=== PATIENT | female | born 1970 | race Caucasian/White ===

== ENCOUNTER → 2018-10-06 | Outpatient (REF) | payer MEDICARE ==
[2018-10-06 17:34] LABS: ALBUMIN 3.7 GM/DL (3.2-5.2); ALT/SGPT 47 U/L (12-78); BILIRUBIN,TOTAL 0.3 MG/DL (0.2-1.0); BLOOD UREA NITROGEN 11 MG/DL (7-18); CALCIUM LEVEL 9.2 MG/DL (8.5-10.1); CARBON DIOXIDE LEVEL 32 MEQ/L (21-32); CHLORIDE LEVEL 104 MEQ/L (98-107); CREATININE FOR GFR 0.89 MG/DL (0.55-1.30); GLOMERULAR FILTRATION RATE > 60.0 (>51); GLUCOSE, FASTING 85 MG/DL (70-100); POTASSIUM SERUM 4.2 MEQ/L (3.5-5.1); SODIUM LEVEL 141 MEQ/L (136-145); TOTAL PROTEIN 6.6 GM/DL (6.4-8.2)
== END ==
LOC: M SFHCLERA 11:48
PROVIDERS: ATTEND Physician Assistant
DX: R60.0 Localized edema (principal)

== ENCOUNTER → 2018-10-06 | Outpatient (CLI) | payer MEDICARE ==
--- NOTE | 2018-10-06 12:37 | REP ---
Chest x-ray: Two views. History: Palpitations. Edema. Findings: Ventral discectomy and fusion plate is seen in the lower cervical spine. The lungs are slightly hyperinflated but free of infiltrate. Pleural angles are sharp. Heart size is normal. Pulmonary vasculature is not increased. There are minimal degenerative changes in the mid thoracic spine. Impression: Mild hyperinflation. Otherwise no acute disease. Normal heart size. Electronically Signed by Bhavik Duran MD 10/06/2018 01:03 P
== END ==
LOC: M LRY 10:56
PROVIDERS: ATTEND Physician Assistant
DX: M51.34 Other intervertebral disc degeneration, thoracic region (principal); R60.0 Localized edema; R00.2 Palpitations
CPT/HCPCS: 71046; 80053; 81002; 93005; G0404; G0463

== ENCOUNTER → 2018-10-18 | Outpatient (REF) | payer MEDICARE ==
[2018-10-18 16:56] LABS: BASO # 0.1 10^3/uL (0.0-0.2); BASO % 0.6 % (0.0-1.0); EOS # 0.3 10^3/uL (0.0-0.50); EOS % 3.7 % (0.0-3.0); HEMATOCRIT 47.6 % (36.0-47.0); HEMOGLOBIN 15.8 g/dl (12.0-15.5); LYMPH # 2.1 10^3/uL (1.5-4.5); LYMPH % 25.8 % (24.0-44.0); MEAN CORPUSCULAR HEMOGLOBIN 30.4 pg (27.0-33.0); MEAN CORPUSCULAR HGB CONC 33.2 g/dl (32.0-36.5); MEAN CORPUSCULAR VOLUME 91.5 fl (80.0-96.0); MONO # 0.7 10^3/uL (0.0-0.8); MONO % 8.2 % (0.0-5.0); NEUTROPHILS # 4.9 10^3/uL (1.8-7.7); NEUTROPHILS % 61.3 % (36.0-66.0); PLATELET COUNT, AUTOMATED 179 10^3/uL (150-450); WHITE BLOOD COUNT 8.1 10^3/uL (4.0-10.0)
[2018-10-18 17:08] LABS: CHOLESTEROL RISK RATIO 4.178 (<5); FREE T4 0.97 NG/DL (0.76-1.46); THYROID STIMULATING HORMONE 1.11 uIU/ML (0.358-3.740)
[2018-10-18 17:10] LABS: TOTAL 25(OH) VITAMIN D 23.9 NG/ML (30.0-100.0)
== END ==
LOC: M SFHCLERA 13:51
PROVIDERS: ATTEND Nurse Practitioner Family
DX: R63.5 Abnormal weight gain (principal); Z13.220 Encounter for screening for lipoid disorders; M25.50 Pain in unspecified joint; E78.00 Pure hypercholesterolemia, unspecified

== ENCOUNTER → 2019-02-28 | Outpatient (CLI) | payer MEDICARE ==
--- NOTE | 2019-02-28 12:35 | REP ---
Left hand series: Four views. History: Swelling. Findings: Four views of the left hand show overall normal mineralization. There is a large well-defined rounded periarticular calcification in the palmar soft tissues adjacent to the distal end of the first metacarpal. This calcification is separate from the sesamoid bones and measures 9 mm in greatest diameter. There is a tiny subcortical cyst in the distal end of the first metacarpal phalangeal articulation. There is a tiny subcortical cyst in the distal end of the second metacarpal as well. Sesamoid bones are incidentally noted at the palmar aspect of the second and fifth MCP joints. These are normal variant. The calcific density at the thumb is separate from the sesamoids however. Impression: Periarticular 9 mm soft tissue calcification along the palmar aspect of the distal first metacarpal, separate from the normal sesamoid bones. This finding has a broad list of differential possibilities including connective tissue disease, disorders of calcium metabolism, crystal induced arthropathy, and myositis ossificans. There are mild osteoarthritic changes. No acute bony abnormality is seen. Electronically Signed by Bhavik Duran MD 02/28/2019 05:39 P
== END ==
LOC: M LRY 11:44
PROVIDERS: ATTEND Physician Assistant
DX: M79.89 Other specified soft tissue disorders (principal)

== ENCOUNTER → 2019-02-28 | Outpatient (REF) | payer MEDICARE ==
[2019-02-28 17:06] LABS: BASO # 0.1 10^3/uL (0.0-0.2); BASO % 0.6 % (0.0-1.0); EOS # 0.2 10^3/uL (0.0-0.5); EOS % 2.2 % (0.0-3.0); LYMPH # 2.5 10^3/uL (1.5-5.0); LYMPH % 25.8 % (24.0-44.0); MEAN CORPUSCULAR HEMOGLOBIN 30.6 pg (27.0-33.0); MEAN CORPUSCULAR VOLUME 95.6 fl (80.0-96.0); MONO # 0.7 10^3/uL (0.0-0.8); NEUTROPHILS # 6.3 10^3/uL (1.5-8.5); PLATELET COUNT, AUTOMATED 204 10^3/uL (150-450); RED BLOOD COUNT 5.23 10^6/uL (4.00-5.40); WHITE BLOOD COUNT 9.9 10^3/uL (4.0-10.0)
[2019-03-01 00:03] LABS: RHEUMATOID FACTOR QUANT < 10.0 IU/ML (<15.0)
== END ==
LOC: M SFHCLERA 11:44
PROVIDERS: ATTEND Physician Assistant
DX: M79.89 Other specified soft tissue disorders (principal)